=== PATIENT | male | born 1945 | race Caucasian/White ===

== ENCOUNTER 2024-02-07 19:21 | Inpatient (IN) | payer OTHER ==
[~2024-02-07] VITALS: Ht 182.9 cm; Wt 120.3 kg
[2024-02-07] MEDS ORDERED: Furosemide 40 MG Tab PO ONE (20:50)
[2024-02-07 21:28] LABS: BASOPHILS ABSOLUTE AUTO 0.02 K/mm3 (0.00-0.23); BASOPHILS PERCENT AUTO 0 % (0-2); EOSINOPHILS PERCENT AUTO 0 % (0-6); Hematocrit 44.6 % (37.0-53.0); Hemoglobin 13.1 g/dL (13.5-17.5); IMMATURE GRAN ABSOLUTE AUTO 0.06 K/mm3 (0.00-0.10); IMMATURE GRAN PERCENT AUTO 1 % (0-1); LYMPHOCYTES ABSOLUTE AUTO 0.94 K/mm3 (0.84-5.20); LYMPHOCYTES PERCENT AUTO 9 % (21-46); MONOCYTES ABSOLUTE AUTO 1.08 K/mm3 (0.16-1.47); MONOCYTES PERCENT AUTO 10 % (4-13); Mean Corpuscular HGB 28.3 pg (26.0-34.0); Mean Corpuscular HGB Conc 29.4 g/dL (31.5-36.5); Mean Corpuscular Volume 96 fL (80-100); NEUTROPHILS ABSOLUTE AUTO 8.65 K/mm3 (1.96-9.15); NEUTROPHILS PERCENT AUTO 81 % (41-73); Platelet Count 153 K/mm3 (150-400); RDW Coefficient Variation 14.9 % (11.7-14.2); RDW Standard Deviation 52.6 fL (35.1-46.3); Red Blood Cell Count 4.63 M/mm3 (4.30-5.90); White Blood Cell Count 10.75 K/mm3 (4.00-11.30)
[2024-02-07 21:50] LABS: Albumin, Blood 3.4 g/dL (3.4-5.0); Albumin/Globulin Ratio 1.1 (0.8-1.8); Bilirubin, Total 0.6 mg/dL (0.1-1.0); Bun/Creatinine Ratio 39.3 (12.0-20.0); Calcium, Blood 9.1 mg/dL (8.5-10.1); Creatinine, Blood 0.89 mg/dL (0.60-1.20); Globulin, Blood 3.1 g/dL (2.2-4.0); Potassium, Blood 4.2 mmol/L (3.5-5.5); Total Protein, Blood 6.5 g/dL (6.4-8.2)
[2024-02-07] MEDS ORDERED: LORazepam 2 MG/ML 1ML Injection IV ONE (22:05)
[2024-02-07 22:10] LABS: Influenza A, PCR NEGATIVE (NEGATIVE); Influenza B, PCR NEGATIVE (NEGATIVE); Resp Syncytial Virus, PCR NEGATIVE (NEGATIVE); SARS-Cov-2 (COVID-19) PCR, MMC NEGATIVE (NEGATIVE)
[2024-02-07 23:09] LABS: Base Excess Venous 23.1 mmol/L; Bicarbonate Venous 41.8 mmol/L (24.0-30.0); PCO2 Venous 83.4 mmHg (38-42); pH Blood Venous 7.37 (7.34-7.37)
[2024-02-07] MEDS ORDERED: Aspirin 325 MG Tab PO ONE (23:35)
[2024-02-08] VITALS (27 sets, daily range): BP systolic 118–165; BP diastolic 57–104
[2024-02-08 01:29] LABS: Anti-Xa UFH, PHA Monitoring 0.84 IU/mL; International Normalized Ratio 1.23
[2024-02-08] MEDS ORDERED: Ipratropium/Albuterol SulF 2.5-0.5MG/3 ML Amp INH SCH (01:30)
[2024-02-08] MEDS ORDERED: Metoprolol Tartrate 1 MG/ML 5 ML VIAL IV PRN (01:35)
[2024-02-08] MEDS ORDERED: MethylPREDNISolone Sod Succ 125 MG Vial IV SCH (01:43)
[2024-02-08] MEDS ORDERED: Azithromycin 250 MG Tab PO SCH (02:00)
[2024-02-08] MEDS ORDERED: Heparin Sodium,Porcine/0.5 NS 500 ML IV SCH (02:05)
[2024-02-08 02:34] LABS: BASOPHILS ABSOLUTE AUTO 0.03 K/mm3 (0.00-0.23); BASOPHILS PERCENT AUTO 0 % (0-2); EOSINOPHILS ABSOLUTE AUTO 0.03 K/mm3 (0.00-0.68); EOSINOPHILS PERCENT AUTO 0 % (0-6); Hematocrit 43.4 % (37.0-53.0); Hemoglobin 13.1 g/dL (13.5-17.5); IMMATURE GRAN ABSOLUTE AUTO 0.05 K/mm3 (0.00-0.10); IMMATURE GRAN PERCENT AUTO 1 % (0-1); LYMPHOCYTES ABSOLUTE AUTO 1.81 K/mm3 (0.84-5.20); LYMPHOCYTES PERCENT AUTO 18 % (21-46); MONOCYTES ABSOLUTE AUTO 1.11 K/mm3 (0.16-1.47); MONOCYTES PERCENT AUTO 11 % (4-13); Mean Corpuscular HGB 28.6 pg (26.0-34.0); Mean Corpuscular HGB Conc 30.2 g/dL (31.5-36.5); Mean Corpuscular Volume 95 fL (80-100); Mean Platelet Volume 10.5 fL (9.1-12.4); NEUTROPHILS ABSOLUTE AUTO 7.23 K/mm3 (1.96-9.15); NEUTROPHILS PERCENT AUTO 71 % (41-73); Platelet Count 143 K/mm3 (150-400); RDW Coefficient Variation 14.8 % (11.7-14.2); RDW Standard Deviation 51.7 fL (35.1-46.3); Red Blood Cell Count 4.58 M/mm3 (4.30-5.90); White Blood Cell Count 10.26 K/mm3 (4.00-11.30)
[2024-02-08 02:53] LABS: Alanine Aminotransfer (ALT/SGP 30 U/L (12-78); Albumin, Blood 3.3 g/dL (3.4-5.0); Albumin/Globulin Ratio 1.1 (0.8-1.8); Alk Phos 78 U/L (50-136); Aspartate Aminotrans (AST/SGOT 22 U/L (12-37); Bilirubin, Total 0.6 mg/dL (0.1-1.0); Blood Urea Nitrogen 32 mg/dL (8-24); Calcium, Blood 8.6 mg/dL (8.5-10.1); Chloride, Blood 94 mmol/L (98-108); Creatinine, Blood 0.87 mg/dL (0.60-1.20); Globulin, Blood 2.9 g/dL (2.2-4.0); Glomerular Filtration Rate 89 (60-); Glucose, Blood 108 mg/dL (70-99); Potassium, Blood 3.9 mmol/L (3.5-5.5); Sodium, Blood 141 mmol/L (136-145); Total Protein, Blood 6.2 g/dL (6.4-8.2)
[2024-02-08 03:02] LABS: Anion Gap Unable to Calculate mmol/L (3-11); CO2, Blood >45 mmol/L (21-32)
[2024-02-08 03:32] LABS: Base Excess Venous 24.1 mmol/L; Bicarbonate Venous 43.9 mmol/L (24.0-30.0); PCO2 Venous 83.5 mmHg (38-42); pH Blood Venous 7.38 (7.34-7.37)
[2024-02-08] MEDS ORDERED: Aspirin 81 MG Chew PO ONE (03:45)
[2024-02-08] MEDS ORDERED: Nitroglycerin 0.4 MG SUBL SL PRN (03:50)
[2024-02-08 05:54] LABS: Base Excess Venous 23.6 mmol/L; Bicarbonate Venous 43.5 mmol/L (24.0-30.0); PCO2 Venous 73.5 mmHg (38-42); pH Blood Venous 7.42 (7.34-7.37)
[2024-02-08] MEDS ORDERED: Losartan Potassium 25 MG Tab PO SCH (09:00)
[2024-02-08] MEDS ORDERED: Furosemide 10 MG/ML 4ML Vial IV SCH (09:00)
[2024-02-08] MEDS ORDERED: Lactobacil 2-S.Thermo-Bifido 1 1 Cap PO SCH (09:00)
[2024-02-08] MEDS ORDERED: CefTRIAXone Sodium 1,000 MG in NS 100 ML IV SCH (09:00)
[2024-02-08] MEDS ORDERED: Atorvastatin 40 MG Tab PO SCH (09:00)
--- NOTE | 2024-02-08 09:17 | NUR ---
Patient arrived to icu 0810 Patient is lethargic but spoke to us. He is moving all extremeties. Patient is on bipap with precedex at 0.9mg/kg/... patient has 2 piv's bilat forearms. patient has a byrnes 16 fr. with cheri urine out. Patient is kwabena with a fib rhythm irregular heart tones, pt has distended but soft abd with normal bowel tones. Edema to lower extrem bilat. 2+. pulses are faint when palpated. heparin drip going into right arm iv at 15u/hr weight bases.. Bipap adjusted by RT.
[2024-02-08] MEDS ORDERED: Dose Adjust by Pharmacy XX STA ×3 (10:41→23:45)
[2024-02-08] MEDS ORDERED: Heparin Sodium 5000 Units/ML 1ML MDV IV ONE (10:45)
[2024-02-08] MEDS ORDERED: PERCOCET 10-321 EA10 PO (11:05)
[2024-02-08] MEDS ORDERED: Flomax0.4 MG PO (11:07)
[2024-02-08] MEDS ORDERED: ZOCOR20 MG PO (11:07)
[2024-02-08] MEDS ORDERED: TRAZ100 PO (11:08)
[2024-02-08] MEDS ORDERED: VIT D3-VIT K21 EACH PO (11:11)
[2024-02-08] MEDS ORDERED: DIGOX250 MCG PO (11:11)
[2024-02-08] MEDS ORDERED: FURO40 PO (11:12)
[2024-02-08] MEDS ORDERED: METF500 PO (11:13)
[2024-02-08] MEDS ORDERED: DULERA 100 MCG/13 GM INH (11:14)
[2024-02-08] MEDS ORDERED: ALBU2.5V5 INH (11:15)
[2024-02-08] MEDS ORDERED: [UNRECOGNIZED DRUG - OTHER] PO (11:15)
[2024-02-08] MEDS ORDERED: ELIQUIS5 M2 PO (11:16)
[2024-02-08] MEDS ORDERED: METO50ER PO (11:16)
[2024-02-08] MEDS ORDERED: ASCO500 PO (11:17)
[2024-02-08] MEDS ORDERED: ANORO ELLIPTA1 EACH INH (11:18)
[2024-02-08] MEDS ORDERED: PRED20 PO ×2 (11:18→11:27)
[2024-02-08] MEDS ORDERED: ALBU90OI INH (11:20)
--- NOTE | 2024-02-08 13:50 | NUR ---
Update Patients family arrived. Family stated the patient would not want to ever be intubated. They also wanted to have a discussion on some discharge planning concerns. Called Palliative care and Care Management to come see family at pt's bedside. Called Dr Avina to have code status updated. She would like Palliative care call her when they are done speaking with the family. Echo was completed shortly after pt arrived to icu this am. Awaiting results Patient has consistently been afib bradycardia 35- 50 while on precedex and bipap. Precedex has been titrated down to maintain tolerance of bipap and a good safe sustainable rhythm.
--- NOTE | 2024-02-08 14:42 | NUR ---
Case Conference: Met with pt's and daughter at the bedside. Pt remains on bipap, and is getting precedex to help manage clausterphobia. Laverne states the patient's health has been declining for several months, starting before he fractured his ribs in November 2023. He stopped going out of the house for outings several months ago, and stopped participating in his regular activities. states she heard the pt saying he would not want to be intubated at any time. She then acknowledged that the patient would also not want CPR. Code status changed to DNR. By the end of the conversation, Laverne had decided she will likely take the patient home with hospice. She wants to talk with the doctor first.
--- NOTE | 2024-02-08 16:07 | NUR ---
Spiritual Care | Nurse Request Pt. is intubated and not responsive. Pts. spouse and daughter are present at bedside and welcome my visit. Facilitated a life review. Family are unettled by what they verbalized as a "bad experience" when the Pt. was at the hospital in [place]. Family verbalized their concerns that he should never have been discharged. Family also verbalized that they feel the Pt. is getting excellent care by the [facility] ED and ICU staff. 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
[2024-02-08 17:42] LABS: Bicarbonate Venous 44.2 mmol/L (24.0-30.0); PCO2 Venous 69.5 mmHg (38-42); pH Blood Venous 7.45 (7.34-7.37)
--- NOTE | 2024-02-08 18:39 | NUR ---
END OF SHIFT NOTE PATIENT HAS REMAINED ON BIPAP 16/10 50% ALL DAY. [facility] RECIEVED THIS EVENING WITH LITTLE CHANGE T/O THE DAY LOOKING AT PH AND CO2 NUMBERS - SEE LABS - PATIENT WAS ABLE TO STATE THAT HE FEELS A LOT BETTER THAN HE DID LAST NIGHT IN THE EMERGENCY ROOM. HE HAS BEEN ON PRECEDEX T/O THE DAY AND TITRATED DOWN KEEPING HIM CALM RASS -1 TO 0 AND TRYING TO KEEP HIS HEART RATE FROM DROPPING TOO LOW. THE LOWEST HIS HEART RATE REACH WAS TO 35 STILL IN AN AFIB RHYTHM. PATIENT'S PULSE CURRENTLY IS 51 AFIB WILLIAM ON PRECEDEX AT 0.2MCG/KG/HR. PT HAS GRAHAM THAT HAS BEEN WORKING WELL TODAY. SUSAN URINE OUT AND LASIX HAS BEEN GIVEN TWICE TODAY. HE IS MICRO TURNING HIMSELF MORE NOW BUT OTHERWISE IS NEEDING TWO PEOPLE OR LIFT TO TURN HIM. NO BM TODAY. HE HAS A DIET ORDER HOWEVER HE DOES NOT TOLERATE STAYING OFF THE BIPAP TO DO ORAL CARE LET ALONE TRYING TO EAT SOMETHING. HE WAS GIVEN WATER VIA SPONGE AND SWALLOWED IT WELL WITHOUT CHOKING OR COUGHING. WHEN OFF THE BIPAP FOR THE SHORT MOMENT HIS LIPS WERE TURNING PURPLE AND HIS SAO2 DROPPED TO 86% VERY QUICKLY. FAMILY HAS CHANGED CODE STATUS TO DNR TODAY WITH PALLIATIVE CARE DISCUSSINGS AND LOOKING AT HOSPICE FOR PATIENT IF HE CAN GO HOME. HIS FAMILY STATED LATE TODAY THAT HE IS DIABETIC. DR BARNARD ORDERED FOR A LAB CHECK OF HGBA1C HOWEVER THERE ARE NO CBG CHECKES CURRENTLY. HE WILL HAVE AM LABS. NEXT SHIFT TO RESUME CARE AT 1900.
--- NOTE | 2024-02-08 19:00 | NUR ---
ASSUMED CARE OF PATIENT AT 1900. REPORT RECEIVED FROM NEVAEH DE JESUS. PT RESTING IN BED, DAUGHTER AND AT BEDSIDE. BIPAP IN PLACE WITH SETTINGS OF 16/10 AND 50% WITH O2 SATURATION OF 95%. CONTINOUS CARDIAC MONITORING IN PLACE SHOWS AFIB WITH HR OF 51. BP 122/63. HEPARIN INFUSING AT 17 U/KG/HR, PRECEDEX INFUSING AT 0.2 MCG/KG/HR. NO ACUTE NEEDS IDENTIFIED AT THIS TIME. SEE SHIFT ASSESSMENT FOR FUTHER DETAILS.
[2024-02-08 20:52] LABS: Source, Urine Foley catheter
[2024-02-08 20:56] LABS: Appearance, Urine Cloudy (Clear); Bilirubin, Urine Neg (Neg); Blood, Urine 4+ (Neg); Glucose Qualitative, Urine Neg (Neg); Ketones, Urine Neg (Neg); Leukocyte Esterase, Urine 2+ (Neg); Nitrite, Urine Neg (Neg); Protein, Urine Neg (Neg); Urobilinogen, Urine NORM (Normal)
[2024-02-08 21:05] LABS: Amorphous Heavy (0-Heavy); Bacteria Mod /hpf; Color, Urine Pale Yellow (P-Yellow); Red Blood Cells, Urine 0-2 /hpf (0-2); Squamous Epithelial Cells Not Seen /hpf (Few); White Blood Cells, Urine 25-50 /hpf (0-5)
[2024-02-09] VITALS (20 sets, daily range): BP systolic 116–166; BP diastolic 58–87
[2024-02-09] MEDS ORDERED: LORazepam 2 MG/ML 1ML Injection IV PRN (00:55)
--- NOTE | 2024-02-09 05:14 | NUR ---
SHIFT SUMMARY PT REMAINED ALERT AND ORIENTED T/O ENTIRETY OF SHIFT. ABLE TO FOLLOW COMMANDS, MAKE PURPOSEFUL MOVEMENTS, AND MAKE NEEDS KNOWN. AFEBRILE AND DENIES PAIN. PT WAS FREQUENTLY PULLING BIPAP MASK AWAY FROM FACE. WHEN HE WAS TOLD HIS OXYGEN DESATURATES WITHOUT HIS MASK HE STATES "I RUN AT 80-85% AT HOME, IT'S FINE!" DID NOT TOLERATE PRECEDEX INCREASE HR BECAME ELEVATED. NEW ORDERS PLACED PER HOSPITALIST AND UTILIZED WITH GOOD BENEFIT. CONTINOUS CARDIAC MONITORING SHOWED AFIB/SINUS WILLIAM WITH HR IN 40'S-60'S. PT HAD SEVERAL RUNS OF VTACH, SEE STRIPS SAVED TO PT CHART. NO BM THIS SHIFT. DENIES N/V. GRAHAM PATENT AND DRAINING CLEAR YELLOW URINE TO GRAVITY AT START OF SHIFT, LAST I&O AT APPROXIMATELY 0500 SHOWS URINE IS TURNING SUSAN IN COLOR AGAIN. HEPARIN INFUSING AT 18 U/KG/HR, PRECEDEX INFUSING AT 0.2 MCG/KG/HR. WILL CONTINUE TO MONITOR AND REPORT TO ONCOMING RN.
[2024-02-09 06:01] LABS: Hematocrit 45.7 % (37.0-53.0); Hemoglobin 13.8 g/dL (13.5-17.5); Mean Platelet Volume 10.6 fL (9.1-12.4); Platelet Count 133 K/mm3 (150-400)
[2024-02-09 06:26] LABS: CHOL/HDL RATIO 2.8; Cholesterol 150 mg/dL (50-200); HDL Cholesterol 54 mg/dL (>39); LDL/HDL RATIO 1.5; Low Density Lipoprotein Chol 82 mg/dL (0-110); Triglycerides 72 mg/dL (30-160); Very Low Density Lipoprot Chol 14 mg/dL (6-32)
[2024-02-09] MEDS ORDERED: Clarify Drug Order XX ONE (06:30)
[2024-02-09 07:02] LABS: PCO2 Arterial 70.8 mmHg (35-45); pH Blood Arterial 7.45 (7.35-7.45)
[2024-02-09 07:03] LABS: PO2 Arterial 48.9 mmHg (80-100)
[2024-02-09] MEDS ORDERED: OxyCODONE 10/Acetamin 325 TABLET PO PRN (08:00)
[2024-02-09] MEDS ORDERED: Mometasone/Formoterol MDI 100/5 mcg 13 GM INH SCH (08:05)
[2024-02-09 08:21] LABS: BASOPHILS ABSOLUTE AUTO 0.01 K/mm3 (0.00-0.23); BASOPHILS PERCENT AUTO 0 % (0-2); EOSINOPHILS PERCENT AUTO 0 % (0-6); Hematocrit 45.4 % (37.0-53.0); Hemoglobin 13.8 g/dL (13.5-17.5); IMMATURE GRAN ABSOLUTE AUTO 0.01 K/mm3 (0.00-0.10); IMMATURE GRAN PERCENT AUTO 0 % (0-1); LYMPHOCYTES ABSOLUTE AUTO 0.63 K/mm3 (0.84-5.20); LYMPHOCYTES PERCENT AUTO 11 % (21-46); MONOCYTES ABSOLUTE AUTO 0.53 K/mm3 (0.16-1.47); MONOCYTES PERCENT AUTO 10 % (4-13); Mean Corpuscular HGB 28.3 pg (26.0-34.0); Mean Corpuscular HGB Conc 30.4 g/dL (31.5-36.5); Mean Corpuscular Volume 93 fL (80-100); Mean Platelet Volume 11.1 fL (9.1-12.4); NEUTROPHILS ABSOLUTE AUTO 4.33 K/mm3 (1.96-9.15); NEUTROPHILS PERCENT AUTO 79 % (41-73); Platelet Count 136 K/mm3 (150-400); RDW Coefficient Variation 14.8 % (11.7-14.2); RDW Standard Deviation 51.1 fL (35.1-46.3); Red Blood Cell Count 4.87 M/mm3 (4.30-5.90); White Blood Cell Count 5.51 K/mm3 (4.00-11.30)
[2024-02-09] MEDS ORDERED: Metoprolol Succinate 50 MG TABCR PO SCH ×2 (09:00→21:00)
[2024-02-09] MEDS ORDERED: Aspirin 81 MG Chew PO SCH (09:00)
[2024-02-09] MEDS ORDERED: Multivitamins 1 Tab PO SCH (09:00)
[2024-02-09] MEDS ORDERED: Ascorbic Acid 500 MG Tab PO SCH (09:00)
[2024-02-09] MEDS ORDERED: Digoxin 0.25 MG Tab PO SCH (09:00)
[2024-02-09 09:09] LABS: Anion Gap 8 mmol/L (3-11); Blood Urea Nitrogen 32 mg/dL (8-24); Bun/Creatinine Ratio 48.9 (12.0-20.0); CO2, Blood 41 mmol/L (21-32); Calcium, Blood 8.8 mg/dL (8.5-10.1); Chloride, Blood 93 mmol/L (98-108); Creatinine, Blood 0.65 mg/dL (0.60-1.20); Digoxin (Lanoxin) 0.89 ug/mL (0.80-2.00); Glomerular Filtration Rate 97 (60-); Glucose, Blood 201 mg/dL (70-99); Magnesium, Blood 2.1 mg/dL (1.6-2.4); Phosphorus, Blood 3.8 mg/dL (2.5-4.9); Potassium, Blood 3.8 mmol/L (3.5-5.5); Sodium, Blood 138 mmol/L (136-145)
[2024-02-09] MEDS ORDERED: NS 250 ML IV PRN (09:35)
[2024-02-09] MEDS ORDERED: Dose Adjust by Pharmacy XX STA (14:15)
[2024-02-09] MEDS ORDERED: Heparin Sodium 5000 Units/ML 1ML MDV IV ONE (14:15)
[2024-02-09] MEDS ORDERED: MethylPREDNISolone Sod Succ 40 MG VIAL IV SCH (16:00)
--- NOTE | 2024-02-09 16:07 | NUR ---
Care Conference: Pt is on airvo today, alert and oriented. and daughter at bedside. The patient has told the hospitalist, his family and this RN he wants to go home as soon as possible. He declines cardiology consult, states he doesn't want to wait any longer than he has to to get home. He states he is agreeable to hospice, as he does not wish to return to the hospital anymore, for any reasons. His remains agreeable to care for the patient at home with hospice assisting. The patient lives in [place] and there is only one hospice agency there. Their next availability is 02/13 and given pt's oxygen needs and SOB, it seems as of now he will require a same day d/c from hospital and admit to hospice. Palliative care will continue to offer support to pt and family, and continue working with CM and bedside RN.
--- NOTE | 2024-02-09 18:04 | NUR ---
Shift summary. Pt improved this shift. Airvo settings titrated down, see RT assessments. Up to chair and bedside commoded during shift. One person standby assist with gait belt/walker. Pt moves own weight in bed independently, eating full meals. Family and palliative care planning goals of care, likely home with hospice next week. No acute events this shift. See chart for further details.
--- NOTE | 2024-02-09 20:00 | NUR ---
ASSUMED CARE OF PT AT 1900. REPORT RECEIVED AT BEDSIDE. PT PRESENTS IN BED. ALERT AND ORIENTED. PLEASANT AND COOPERATIVE WITH CARE AND ASSESSMENT. PT USING AIRVO WITH FIO2 50 PERCENT WITH FLOW OF 50 L/M. DISCUSSED WITH PT HIS CONCERNS WITH NOT HAVING TO GO BACK TO BIPAP. DISCUSSED WITH RESPIRATORY THERAPY PT'S CONCERNS, AND THE PROCESS OF KEEPING PT FROM NEEDING BIPAP. PT AGREES WITH THIS PLAN. WILL REVIEW CHART AND PLAN OF CARE FOR THIS PT.
[2024-02-09] MEDS ORDERED: TraZODone HCl 100 MG Tab PO SCH (21:00)
[2024-02-09] MEDS ORDERED: Melatonin 3 MG Tab PO SCH (21:00)
[2024-02-09] MEDS ORDERED: Tamsulosin HCl 0.4 MG Cap PO SCH (21:00)
--- NOTE | 2024-02-09 23:13 | NUR ---
PT CONTINUES ON AIRVO. NOT REQUIRING BIPAP AT THIS TIME. PT STATUS HAS BEEN CHANGED TO PCU. PT MADE AWARE AND IS IN AGREEMENT WITHT HIS PLAN. MEDICATED WITH OXYCODONE FOR COMPLAINT OF BACK PAIN 12/18.
[2024-02-10] VITALS (7 sets, daily range): BP systolic 118–159; BP diastolic 65–107
--- NOTE | 2024-02-10 01:07 | NUR ---
PT TRANSFERRED TO PCU ROOM 3. REPORT GIVEN TO NEVAEH DIAZ. PT ACCEPTING OF TRANSFER. IS ABLE TO PIVOT TRANSFER TO BED FROM ICU BED.
[2024-02-10 04:02] LABS: Hematocrit 43.5 % (37.0-53.0); Hemoglobin 13.4 g/dL (13.5-17.5); Mean Corpuscular HGB 28.5 pg (26.0-34.0); Mean Corpuscular HGB Conc 30.8 g/dL (31.5-36.5); Mean Corpuscular Volume 93 fL (80-100); Mean Platelet Volume 11.2 fL (9.1-12.4); Platelet Count 147 K/mm3 (150-400); RDW Standard Deviation 50.9 fL (35.1-46.3); White Blood Cell Count 9.47 K/mm3 (4.00-11.30)
[2024-02-10 04:22] LABS: Albumin, Blood 2.9 g/dL (3.4-5.0); Anion Gap 8 mmol/L (3-11); Blood Urea Nitrogen 30 mg/dL (8-24); Bun/Creatinine Ratio 43.6 (12.0-20.0); CO2, Blood 42 mmol/L (21-32); Chloride, Blood 92 mmol/L (98-108); Creatinine, Blood 0.69 mg/dL (0.60-1.20); Glomerular Filtration Rate 95 (60-); Glucose, Blood 230 mg/dL (70-99); Phosphorus, Blood 3.4 mg/dL (2.5-4.9); Potassium, Blood 3.7 mmol/L (3.5-5.5); Sodium, Blood 138 mmol/L (136-145)
[2024-02-10] MEDS ORDERED: Dose Adjust by Pharmacy XX STA (05:02)
--- NOTE | 2024-02-10 06:21 | NUR ---
SHIFT SUMMARY PATIENT ARRIVED FROM ICU TO PCU 03. PATIENT IS ALERT AND ORIENTED X4 AND WAS ABLE TO STAND TO TRANSFER TO THE BED WITH MINIMAL ASSISTANCE. HE HAD NO COMPLAINTS OF PAIN OR SHORTNESS OF BREATH. ON AIRVO AT 50 LITERS AND 50% FIO2, SPO2 >90%. VITAL SIGNS STABLE. NO ACUTE ISSUES NOTED OVERNIGHT WILL CONTINUE TO MONITOR. CALL LIGHT WITHIN REACH.
--- NOTE | 2024-02-10 08:52 | NUR ---
Dr. Prince here rounding. Discussed plan of care at bedside with the patient. fitz gomes. Anticipate d/c orders for heparin and other IV medications, transitioning to oral meds.
[2024-02-10] MEDS ORDERED: Digoxin 0.25 MG Tab PO SCH (09:00)
[2024-02-10] MEDS ORDERED: Apixaban 5 MG Tab PO SCH (09:19)
--- NOTE | 2024-02-10 09:38 | NUR ---
HEPARIN gtt dc'd after administration of eliquis p.o. Pt ambulated to the bathroom after voiding in urinal, reported a small BM. States that he feels a little wobbly but not too short of breath. IV on the right wrist bleeding due to being bumped. It is in a difficult place for pt activity. IV on the left forearm is intact. d'cd IV on the right wrist.
--- NOTE | 2024-02-10 11:30 | NUR ---
Family at bedside; and daughter of pt given an update on plan for d/c to home with hospice when available for same day set up in [place], which will likely be Tuesday. Family and pt all agreeable to this. Pt states he has insomnia, and was not able to sleep last night. States takes trazadone 100mg for sleep at night. Requested from Dr. Prince, new order received.
[2024-02-10] MEDS ORDERED: Furosemide 40 MG Tab PO SCH (18:00)
--- NOTE | 2024-02-10 18:20 | NUR ---
Pt has been weaned from the [place] AirVo to nasal cannula, on 4-6 l/min. His home dose is 4 l/min. Tolerated p.o. intake today; had a good appetite. Good tolerance of the use of bathroom, and also took a shower today and said that he felt well.
[2024-02-10] MEDS ORDERED: TraZODone HCl 100 MG Tab PO SCH (21:00)
[2024-02-11 04:10] VITALS: BP 120/62
--- NOTE | 2024-02-11 06:15 | NUR ---
SHIFT SUMMARY PATIENT ALERT AND ORIENTED X4. HAD NO COMPLAINTS OF PAIN OR SHORTNESS OF BREATH. CURRENTLY ON 4 LITERS O2 VIA NC WITH SPO2 >90%. VITAL SIGNS STABLE, AFIB 60'S ON TELE. NO ACUTE ISSUES NOTED OVERNIGHT. WILL CONTINUE TO MONITOR. CALL LIGHT WITHIN REACH.
[2024-02-11 08:15] VITALS: BP 125/64
[2024-02-11] MEDS ORDERED: PredniSONE 20 MG Tab PO SCH (09:00)
[2024-02-11 12:06] VITALS: BP 117/82
[2024-02-11 16:54] VITALS: BP 148/88
--- NOTE | 2024-02-11 17:02 | NUR ---
REPORT CALLED TO HUNG [place] RN ON MEDICAL FLOOR, SHE WAS MADE AWARE THAT PALLIATIVE CARE IS IN WITH PATIENT FOR DISCUSSION ABOUT HOSPICE PT AND FAMILY SEEM TO BE CONFUSED ABOUT HOSPICE CARE. DR LOVELACE HAD PROVIDED PT'S DAUGHTER WITH HAND WRITTEN DISCHARGE PRESCRIPTIONS, DAUGHTER WAS THEN OUT IN [place] WITH ELEVATED VOICE STATING THAT THESE WERE TO BE PROVIDED BY THIS RN AND SHE HAS LEFT THEM ON THE COUNTER. BREAK NURSE MADE COPIES OF PRESCRIPTIONS AND THEY WERE AGAIN GIVEN TO DAUGHTER TO TAKE TO PHARMACY. PT REMAINS ALERT AND ORIENTED, HE IS ON 5L NASAL CANNULA WHICH HE IS TOLERATING WELL. PT TAKEN TO MEDICAL FLOOR VIA AND [facility]. FAMILY WAS UPDATED ABOUT MOVE TO MEDICAL FLOOR
--- NOTE | 2024-02-11 17:25 | NUR ---
TRANSFER NOTE: PATIENT ARRIVED TO THE UNIT VIA WHEELCHAIR WITH O2. NO FAMILY PRESENT. PATIENT WAS ABLE TO SELF TRANSFER TO THE BED. HOOKED UP TO WALL O2. SETTLED IN ROOM AND CALL LIGHT PROVIDED. PATIENT SITTING ON EDGE OF BED WATCHING TV, NO SIGNS OR SYPTOMS OF DISTRESS, IV PATENT; TELE-A FIB AT 76. PLAN OF CARE ONGOING.
[2024-02-11 19:07] VITALS: BP 125/67
--- NOTE | 2024-02-12 01:59 | NUR ---
RECEIVED A CALL FROM [facility] REPORTING A 5-BEAT RUN OF VTACH AT 0131. PT LYING IN BED, RESTING QUIETLY WITH EYES CLOSED AND EVEN, UNLABORED RESPIRATIONS. REPORTED TO ON-CALL HOSPITALIST WHO ORDERED CHEM PANEL FOR MORNING LABS IF ORDER NOT ALREADY IN PLACE.
[2024-02-12 03:38] VITALS: BP 97/57
--- NOTE | 2024-02-12 04:54 | NUR ---
SHIFT SUMMARY: SHEREE IS A&OX4. VSS, BP LOWER THAN TREND THIS AM, PT ASYMPTOMATIC. HE IS TOLERATING PO INTAKE WELL, USING THE URINAL WITHOUT DIFFICULTY, AND MAINTAINING SATS ON 4L VIA NC. HE HAS USED THE CALL LIGHT APPROPRIATELY THIS SHIFT. HOME OXYGEN WAS DELIVERED YESTERDAY, IS IN THE ROOM READY FOR WHEN PT DISCHARGES. HE IS LYING IN BED WITH THE CALL LIGHT IN REACH. WILL GIVE REPORT TO DAY SHIFT RN.
[2024-02-12 06:47] LABS: Blood Urea Nitrogen 23 mg/dL (8-24); Bun/Creatinine Ratio 36.4 (12.0-20.0); Calcium, Blood 8.1 mg/dL (8.5-10.1); Chloride, Blood 93 mmol/L (98-108); Creatinine, Blood 0.63 mg/dL (0.60-1.20); Glomerular Filtration Rate 98 (60-); Glucose, Blood 149 mg/dL (70-99); Potassium, Blood 3.6 mmol/L (3.5-5.5); Sodium, Blood 139 mmol/L (136-145)
[2024-02-12 06:48] LABS: Anion Gap Unable to Calculate mmol/L (3-11)
[2024-02-12 06:49] LABS: CO2, Blood >45 mmol/L (21-32)
[2024-02-12 07:23] VITALS: BP 119/68
--- NOTE | 2024-02-12 07:49 | NUR ---
DELAYED ENTRY FROM 02/11/24 CALLED TO ROOM BY PRIMARY RN SHE IS CONCERNED WITH PT'S INCREASED OXYGEN DEMANDS AND PT'S REQUEST TO D/C HOME. PT WAS ON 5L VIA NC TO MAINTAIN SATS > 88%. WITH ANY MOVEMENT SPO2 DROPS BELOW 85%. PT REPORTS AT BASELINE HE USES 3-4L VIA NC. [facility]AMELA DELIVERED 2 E-TANKS AND REPORTS THEY HAVE 2 MEDIUM TANKS IN THE CAR. PT HAS BEEN ON OXYGEN GREATER THAN 10 YEARS. REPORTS THEY ARE VERY COMFORTABLE MANAGING HIS OXYGEN FOR THE 3 HOUR RIDE HOME TO [place]. ADDITIONAL EDUCATION RE: WHAT HOSPICE IS AND WHY HOSPICE. PT, AND DTR ALL PRESENT. ALL 3 HAVE A DIFFERENT PERSPECTIVE ON WHAT HOSPICE IS AND WHAT IT MEANS. THIS PC RN PROVIDED BOOKLET "CONSIDERING COMFORT CARE A GUIDE FOR FAMILIES" (MOODY BOOK) TO PT/FAMILY. UNDERLINED "NO ONE IS GIVING UP" AND "YOU MAY DISCONTINUE HOSPICE AT ANY TIME." ON PAGE 14. PT'S BODY LANGUAGE CHANGED FROM A GUARDED STANCE TO LESS TENSE AND ALMOST RELAXED. PT AGREES, HE WOULD BENEFIT FROM ADDITIONAL SUPPORT AT HOME FROM HOSPICE. HE DOES NOT WANT TO KEEP RETURNING TO THE HOSPITAL. AND DTR ARE IN SUPPORT OF PT'S WISH TO NOT RETURN TO THE HOSPITAL. SHEREE IS A WHOM RECEIVES CARE AT THE [facility] IN [facility]. REVIEWED CODE STATUS. FILLED OUT A NEW POLST TO REFLECT DNR/SELECTIVE MEDICAL INTERVENTION. PROVIDER NOTIFIED BY PRIMARY RN, NEW POLST COMPLETED/PENDING SIGNATURE. PC TO REMAIN AVAILABLE.
--- NOTE | 2024-02-12 08:55 | NUR ---
SUPPORTIVE VISIT SHEREE IS UP IN BED EATING BREAKFAST. HE DENIES CP/SOB. OXYGEN IS AT HIS BASELINE OF 4L VIA NC. HE IS LOOKING FORWARD TO GOING HOME TO [place] THIS MORNING. NO ACUTE S/SX OF DISTRESS NOTED. COMPLETED POLST PHOTOCOPIED AND SENT TO [facility], [place] [facility] AND [facility]. ORIGINAL AND ADDITIONAL PHOTO COPY OF POLST PROVIDED TO PT.
[2024-02-12] MEDS ORDERED: ASPI81CH PO (11:53)
[2024-02-12] MEDS ORDERED: Ativan1 MG PO (11:54)
--- NOTE | 2024-02-12 13:18 | NUR ---
DISCHARGE SUMMARY PT D/C THIS SHIFT. EDUCATED PT ON MEDICATION CHANGE AND HOW TO PROPERLY USE AN INHALER. PT STATED UNDERSTAND. PT WAS ESCORTED TO PRIVATE VEHICLE BY QUALITY ANALYST AND WAS ACCOMPANIED BY .
== END 2024-02-12 12:55 | disposition hospice, home (50) | DRG 280 ==
LOC: ER 19:21 → ERHOLD 19:22 → ER 19:22 → PCU 19:22 → ERHOLD 19:22 → ICUE 19:22 → ERHOLD 02-08 06:17 → ICUE 02-08 08:05 → ERHOLD 02-08 08:05 → ICUE 02-09 19:16 → PCU 02-10 00:36 → ICUE 02-10 00:36 → PCU 02-10 00:36 → MEDS 02-11 17:10
PROVIDERS: Internal Medicine; Student in an Organized Health Care Education/Training Program; ADMIT Student in an Organized Health Care Education/Training Program
PROC: 4A033R1 Measurement of Arterial Saturation, Peripheral, Percutaneous Approach (ICD-10-PCS; principal; 2024-02-07)
PROC: 5A09357 Assistance with Respiratory Ventilation, Less than 24 Consecutive Hours, Continuous Positive Airway Pressure (ICD-10-PCS; 2024-02-07)
PROC: 5A0935A Assistance with Respiratory Ventilation, Less than 24 Consecutive Hours, High Flow/Velocity Cannula (ICD-10-PCS; 2024-02-07)
DX: I50.33 Acute on chronic diastolic (congestive) heart failure (principal); J18.9 Pneumonia, unspecified organism; I21.A1 Myocardial infarction type 2; J96.21 Acute and chronic respiratory failure with hypoxia; J96.22 Acute and chronic respiratory failure with hypercapnia; J44.0 Chronic obstructive pulmonary disease with (acute) lower respiratory infection; I48.20 Chronic atrial fibrillation, unspecified; J44.1 Chronic obstructive pulmonary disease with (acute) exacerbation; Z66 Do not resuscitate; Z51.5 Encounter for palliative care; G47.33 Obstructive sleep apnea (adult) (pediatric); N40.0 Benign prostatic hyperplasia without lower urinary tract symptoms; E11.9 Type 2 diabetes mellitus without complications; Z88.5 Allergy status to narcotic agent; Z79.01 Long term (current) use of anticoagulants
CPT/HCPCS: 0241U; 36415; 36600; 51702; 71046; 80048; 80053; 80061; 80069; 80162; 81001; 82803; 83036; 83735; 83880; 84145; 84484; 85014; 85018; 85025; 85027; 85049; 85520; 85610; 85730; 87086; 93005; 93010; 93306; 94640; 94660; 94664; 94760; 94762; 96365-59; 96366; 96375; 96375-59; 99285-25; A9270; G0378; J0696; J1644; J1940; J2060; J2919; J7050; J7512